=== PATIENT | female | born 1960 | race Caucasian/White ===

== ENCOUNTER → 2017-01-02 | Outpatient (CLI) | payer BC ==
--- NOTE | 2017-01-02 15:50 | RAD ---
Renal ultrasound with renal arterial Doppler Indication: Hypertension. Comparison: None. Procedure: Grayscale, color Doppler, and spectral Doppler imaging was performed of the kidneys, aorta, and renal vasculature. Findings: Examination is technically difficult secondary to patient body habitus and gas. Grayscale imaging demonstrates that the right kidney measures 10.6 cm in length. The left kidney measures 10.5 cm in length. Both kidneys without evidence of obstruction or stone. Parenchymal echogenicity of both kidneys appears appropriate. Urinary bladder has unremarkable appearance. Uterus is enlarged. Visualized abdominal aorta demonstrates atherosclerosis. Visualized aorta is without evidence of aneurysm. Peak systolic velocity of the abdominal aorta is 135 cm/s. The peak systolic velocity of the proximal right renal artery is 162 cm/s. The peak systolic velocity of the mid right renal artery is 147 cm/s. Peak systolic velocity of the distal right renal artery is 132 cm/s. Maximum RA/AO ratio is 1.2. Peak systolic velocity of the proximal left renal artery is 103 cm/s. Peak systolic velocity of the mid left renal artery is 148 cm/s. Peak systolic velocity of the distal left renal artery is 111 cm/s. Maximum left RA/AO ratio is 1.1. Both renal veins are patent. Impression: 1. Unremarkable grayscale appearance of the kidneys. 2. No ultrasound evidence of renal artery stenosis. 3. Enlargement of the uterus.
== END | disposition home or self-care (01) ==
LOC: US 07:32
PROVIDERS: ATTEND Internal Medicine Cardiovascular Disease
DX: I10 Essential (primary) hypertension (principal); I70.0 Atherosclerosis of aorta; N85.2 Hypertrophy of uterus
CPT/HCPCS: 76770

== ENCOUNTER → 2021-06-23 | Outpatient (CLI) | payer BC, OTHER ==
--- NOTE | 2021-06-23 17:22 | RAD ---
[facility]ILAT SCREEN+[facility] 06/23/2021 3:22 PM INDICATION: Asymptomatic screening mammogram. COMPARISON: None available TECHNIQUE: 3D tomosynthesis was performed in CC and MLO projections. 2D views were obtained from the 3D data. CAD was utilized as needed. FINDINGS: Breast density: Category B: There are scattered areas of fibroglandular density. Right breast: There is a 1.2 cm focal asymmetry in the slightly upper outer left breast 9-10 cm from the nipple. Further evaluation with spot compression CC and MO views as well as ultrasound is recomme nded. Left breast: There are no suspicious microcalcifications, masses or areas of architectural distortion . IMPRESSION: 1. Incomplete right mammogram. Additional imaging is recommended as detailed above. 2. Negative left mammogram. BI-RADS category: 0; Incomplete Recommendations: Recommend additional imaging for which the patient will need to be called back. Electronically signed by: Margarita James MD (06/23/2021 5:20 PM) [email or web address]
== END ==
LOC: MAMMO 15:16
PROVIDERS: ATTEND Family Medicine
DX: Z12.31 Encounter for screening mammogram for malignant neoplasm of breast (principal)
CPT/HCPCS: 77063; 77067

== ENCOUNTER → 2021-07-13 | Outpatient (CLI) | payer OTHER ==
--- NOTE | 2021-07-13 14:37 | RAD ---
EXAM: 1. Unilateral digital diagnostic mammography, right. 2. Right breast ultrasound. HISTORY: Indeterminate findings on screening mammography. Additional views requested. TECHNIQUE: Right full field digital images were obtained in spot compression CC and MLO and ML projec tions. Computer-aided detection was applied. Sonography of the right breast was also performed. COMPARISON: 06/23/2021. COMPOSITION: A. The breasts are almost entirely fatty. FINDINGS: The mass of concern superolaterally on the right persist on spot compression and appears sp iculated. On today's sonography, this corresponds with a hypoechoic irregular shadowing mass at the 1 0:00 position 10 cm from the nipple measuring 9 x 6 x 6 mm. There are no suspicious appearing right a xillary lymph nodes. Elsewhere, coarse and secretory calcifications appear benign. BI-RADS CATEGORY 5: Highly Suggestive of Malignancy--Appropriate action should be taken. RECOMMENDATION: 1. Ultrasound-guided biopsy of the mass at the right 10:00 position, 10 cm from the nipple. Electronically signed by: Enrike Dooley MD (07/13/2021 2:34 PM) [email or web address]
== END ==
LOC: MAMMO 13:11
PROVIDERS: ATTEND Family Medicine
DX: N63.11 Unspecified lump in the right breast, upper outer quadrant (principal); R92.1 Mammographic calcification found on diagnostic imaging of breast
CPT/HCPCS: 76642; 77065